=== PATIENT | female | born 1980 | race Caucasian/White ===

== ENCOUNTER 2020-10-05 13:49 | Outpatient (CLI) | payer OTHER, SELFPAY ==
--- NOTE | ~2020-10-05 | MMUS_ITS ---
EXAMINATION: MM diagnostic sharif BI w ashley, US breast LT complete HISTORY: Palpable left breast abnormality TECHNIQUE: Additional 3-D tomosynthesis images of the breasts were performed and synthetic 2-D images were generated. CAD analysis was submitted and interpreted. High resolution complete left breast ult rasound was performed. COMPARISON: 06/16/2016 BREAST PARENCHYMAL COMPOSITION: Breast composed of scattered areas of fibroglandular density. FINDINGS: MAMMOGRAPHIC FINDINGS: There is a 5 mm circumscribed mass in the lower inner quadrant of the left breast anteriorly. There a re no suspicious calcifications or architectural distortion. ULTRASOUND: There are multiple cysts of the left breast, largest measuring 1.5 cm maximum dimension at 4:00, 4 cm from the nipple. There is a 6 mm cyst corresponding to the mammographic abnormality at 8:00, 3 cm fr om the nipple. No suspicious masses to suggest malignancy. IMPRESSION: 1. No evidence for malignancy in either breast. 2. Routine yearly screening mammogram and regular clinical breast examination are recommended. BI-RADS Category 2: Benign finding(s). Reviewed, dictated and finalized at location A. IMPRESSION: 1. No evidence for malignancy in either breast. 2. Routine yearly screening mammogram and regular clinical breast examination a re recommended. BI-RADS Category 2: Benign finding(s).
== END 2020-10-05 13:50 | disposition home or self-care (01) ==
PROVIDERS: PCP Family Medicine; Visit Provider Obstetrics & Gynecology
DX: N63.20 Unspecified lump in the left breast, unspecified quadrant (principal)
CPT/HCPCS: 76641; 77062; 77066; G0279

== ENCOUNTER 2023-05-29 10:43 | Outpatient (CLI) | payer OTHER, SELFPAY ==
--- NOTE | ~2023-05-29 | MMUS_ITS ---
EXAMINATION: MM diagnostic sharif BI w ashley, US breast BI limited HISTORY: Palpable lump in the upper outer quadrant of the right breast TECHNIQUE: Craniocaudal, mediolateral, and mediolateral oblique 3-D tomosynthesis images of the chuy ts were performed and synthetic 2-D images were generated. CAD analysis was submitted and interpreted . High resolution limited bilateral breast ultrasound was performed. COMPARISON: 10/05/2020, 06/16/2016 BREAST PARENCHYMAL COMPOSITION: The breasts are heterogeneously dense, which may obscure small masses . FINDINGS: MAMMOGRAPHIC FINDINGS: Right breast: There is a 1.5 x 1.1 cm oval, obscured, equal density mass in the anterior/middle third of the upper outer quadrant of the breast at the 10:00 location, 5 cm from the nipple corresponding to the palpable abnormality of concern. Left breast: There is a stable 5 mm round, equal density, circumscribed mass in the middle third of i nner breast 8:00 location, 6 cm from the nipple. In addition there is a stable stable 2.1 x 1.1 cm lo w-density, lobulated, obscured mass in the middle third of the lower-outer breast at the 4:00 locatio n, 7 cm from the nipple. ULTRASOUND: Right breast: There is a 1.1 x 0.9 cm oval, circumscribed, not parallel, hypoechoic mass with mixed p osterior features and internal vascularity at the 9:00 location, 1 cm from the nipple corresponding t o the palpable abnormality of concern. Left breast: There is a stable 1.5 cm cluster of microcysts at the 4:00 location 2 cm from the nipple , consistent with a benign finding.. In addition stable 5 mm round, circumscribed, hypoechoic mass wi th no posterior features or internal vascularity at the 8:00 location, 3 cm from the nipple, consiste nt with a benign finding. IMPRESSION: 1. Indeterminate right breast mass corresponding to the palpable abnormality of concern. 2. Ultrasound-guided right breast biopsy is recommended. BI-RADS category 4, suspicious findings. Reviewed, dictated and finalized at location A. OHISTORIAN IMPRESSION: 1. Indeterminate right breast mass corresponding to the palpable abnormality of concern. 2. Ultrasound-guided right breast biopsy is recommended. BI-RADS category 4, suspicious findings.
== END 2023-05-29 10:44 | disposition home or self-care (01) ==
PROVIDERS: PCP Family Medicine; Visit Provider Obstetrics & Gynecology
DX: N63.11 Unspecified lump in the right breast, upper outer quadrant (principal); R92.8 Other abnormal and inconclusive findings on diagnostic imaging of breast
CPT/HCPCS: 76642; 77062; 77066; G0279

== ENCOUNTER 2023-07-23 01:23 | Day surgery (SDC) | payer OTHER, SELFPAY ==
[2023-07-16 09:38] VITALS: BMI 33.6
--- NOTE | 2023-07-16 09:43 | PC.NURSE ---
Report to the Outpatient Waiting Room, entrance under the green pavilion located off [facility], at time 0600 on date 07/23/23. Planned Procedure Time: 0730. Time changes happen often and if your time is changed the preop area will call you the afternoon before. - You and your visitor will be asked to self-screen and do not enter if you have any COVID symptoms. - A mask is optional within the hospital at this time. Patients may have clear liquids (water, carbonated beverages, clear teas, apple juice) until 3 hours prior to surgery with a maximum of 20 ounces. - No food from midnight until time of surgery Take the following medications with a SIP of water the morning of surgery: N/A DO NOT STOP ANY OF YOUR OTHER PRESCRIPTION MEDICATIONS PRIOR TO SURGERY ?EXCEPT THE FOLLOWING Medications to discontinue per physician: N/A Date to take last dose: N/A Please no make-up, nail yoruba, hairspray, perfume, deodorant, or body powder the day of surgery. No jewelry (including any body piercings) or valuables the day of surgery, leave them at home. Please take a shower or bath the night before, or the morning of, surgery with an antibacterial soap. Wear comfortable, loose fitting clothing. - Jewelry must be removed prior to entering the operating room. Rings and piercings that are not removed may be cut off. - The hospital will not accept responsibility for valuables. - Please leave all valuables, including medications, at home the day of surgery. If you are going home after surgery, a licensed transit driver must drive you home. - NO public transportation without another adult if you receive anesthesia. - We recommend that an adult stay with you for 24 hours following discharge. - We also recommend that you do not drive, make important decision, drink alcoholic beverages, or take any drugs that were not prescribed by your health care provider for at least 24 hours after your discharge time. Follow any additional instructions given to you from your surgeon. If you or anyone in your household have experienced Covid symptoms in the past week, please notify your surgeon or the nurse liaison at the phone number below for possible testing. Telephone instructions given to PT Arti BURLESON and asked if any additional questions and then verbalized understanding. Patient advised to call surgeon office or pre surgery nurse liaison [phone] if any additional questions.
--- NOTE | 2023-07-22 08:59 | PM.IMHP ---
H&P: HPI History of Present Illness Date/Time: 07/22/23 08:59 Chief Complaint: AUB Narrative: Mari is a 43yo [id number], who presents for scheduled surgery. She has a normal pap 08/2020. She reports her cycles are regular; more cramping the first few days (take OTC meds PRN), but that they have gotten significantly heavier over the last year. Now having 3 full days of clots and needing to change her super plus tampon every couple of hours. INTELLIGENCE AGENT US and blood work were normal. EMB in office was also normal. Wanting to proceed with the ablation. Has h/o BTL. Has h/o LEEP in 2003; normal paps since. Review of Systems Constitutional: Constitutional: Denies chills, Denies fever(s) and Denies headache(s) Eyes: Eyes: Denies change in vision ENT: Denies dizziness and Denies headache(s) Cardiovascular: Cardiovascular: Denies chest pain and Denies dyspnea Respiratory: Respiratory: Denies cough and Denies dyspnea Gastrointestinal: Gastrointestinal: Denies abdominal pain and Denies change in stool character Genitourinary: Genitourinary: Denies abnormal menses, Reports menorrhagia, Denies pelvic pain, Denies vaginal discharge, Denies vaginal odor and Denies vaginal pruritus Neurologic: Denies dizziness and Denies headache(s) Psychiatric: Psychiatric: Denies anxiety and Denies depression PMFSH Past Medical History Medical History delivery delivered xs 2 High cholesterol Rosacea Surgical History Surgical History H/O colposcopy with cervical biopsy 2003 History of loop electrosurgical excision procedure (LEEP) 2004 Tubal ligation status Family History Family History Other Heart disease Hypertension Hyperthyroidism Pulmonary embolism Social History Social History Smoking status: Never smoker Alcohol intake: current Drinks per week: 4 Alcohol use details: socially Substance use: never Substance use type: does not use Lack of Transportation: No Lack of Food: Never True Current Housing: I Have Housing Concerned About Future Housing: No Difficulty Paying Gas/Electric Bills: No Difficulty Paying for Meds: No Currently Unemployed: No Education: Associate Degree Difficulty w/ Childcare or Family Care: No Living arrangements: with family Occupation/Education: occupation Additional occupation/education comments: nurse Gender identity (if verbalized by the patient): Female Sexual Orientation (if Verbalized by the Patient): Straight or Heterosexual Spiritual care concerns: No Meds Home Medications and Allergies Home Medications Medication Instructions Recorded Confirmed Type No Home Medications 04/12/22 07/16/23 History Allergies Allergy/AdvReac Type Severity Reaction Status Date / Time morphine [From Astramorph-PF] Allergy Intermediate Itching Verified 07/16/23 09:38 Exam Const: General: cooperative, healthy appearing, comfortable and no acute distress Orientation/consciousness: patient oriented x3 Resp: Effort & Inspection: normal respiratory effort Cardio: Rate: regular rate GI: Inspection: normal to inspection GI Palp: No abdominal tenderness and Yes Soft to palpation : Other: deferred to OR Skin: General skin exam: normal color Neuro: General: patient oriented x3 Extrem: General: normal to inspection Psych: Appearance: grossly normal Affect: normal affect Attitude: cooperative Assessment and Plan Assessment and plan (1) Menorrhagia: Qualifiers: Menorrhagia type: with regular cycle Qualified Code(s): N92.0 - Excessive and frequent menstruation with regular cycle Code(s): N92.0 - Excessive and frequent menstruation with regular cycle Status: Acute Plan - proceed with HSC, D&C
--- NOTE | 2023-07-23 06:35 | WPDHPUPDATE1 ---
History and Physical Update Update Date/Time: 07/23/23 06:35 History and Physical has been reviewed, including an updated exam of the patient. There are NO changes in the patient's condition. Risks, benefits, and alternatives have been discussed and questions answered. Patient agrees to proceed with Hysteroscopy, D&C, and Lynne endometrial ablation.
[2023-07-23 06:45] VITALS: BP 117/83; PULSE 78; RESP 14; TEMP 36.8; O2SAT 99
[2023-07-23] MEDS: ACETAMINOPHEN 500 MG TABLET 1000 MG PO (06:45)
[2023-07-23] MEDS: LACTATED RINGERS 1,000 ML 30 ML IV CONT (06:45)
--- NOTE | 2023-07-23 07:13 | P.PNAN_ITS ---
Anes - Initial Pre Proc Eval Procedure: Operation Date: 07/23/23 07:30 Proposed Procedures p Hysteroscopy Dilation and Curettage with Lynne Endometrial Ablation - Pat Obando MD Date/Time: 07/23/23 07:13 Surgeon: Pat Obando MD Pre Op Diagnosis: Menorrhagia Patient Data Age: 43 Gender: F Height: 1.63 m Weight: 90.05 kg Last Vital Signs Temp 98.2 F 07/23/23 06:45 Pulse 78 07/23/23 06:45 Resp 14 07/23/23 06:45 BP 117/83 07/23/23 06:45 Pulse Ox 99 07/23/23 06:45 O2 Del Method Room Air 07/23/23 06:45 Allergies Allergy/AdvReac Type Severity Reaction Status Date / Time morphine [From Astramorph-PF] Allergy Intermediate Itching Verified 07/23/23 06:56 Home Medications Medication Instructions Recorded Confirmed Type No Home Medications 04/12/22 07/16/23 History Patient hx anesthesia problems: none Family hx anesthesia problems: none Results Review: All pre-operative results and documents have been reviewed as part of the pre- operative evaluation. [facility] Past Medical History Medical History delivery delivered xs 2 High cholesterol Rosacea Surgical History Surgical History H/O colposcopy with cervical biopsy 2003 History of loop electrosurgical excision procedure (LEEP) 2004 Tubal ligation status Family History Family History Other Heart disease Hypertension Hyperthyroidism Pulmonary embolism Social History Social History Smoking status: Never smoker Alcohol intake: current Drinks per week: 4 Alcohol use details: socially Substance use: never Substance use type: does not use Lack of Transportation: No Lack of Food: Never True Current Housing: I Have Housing Concerned About Future Housing: No Difficulty Paying Gas/Electric Bills: No Difficulty Paying for Meds: No Currently Unemployed: No Education: Associate Degree Difficulty w/ Childcare or Family Care: No Living arrangements: with family Occupation/Education: occupation Additional occupation/education comments: nurse Gender identity (if verbalized by the patient): Female Sexual Orientation (if Verbalized by the Patient): Straight or Heterosexual Spiritual care concerns: No Anes - Eval Final PreProcedure Day of Procedure 07/23/23 07:13 Patient weight: obese Heart: regular rate and rhythm Lungs: clear to auscultation Airway: Mallampati scale class II Neurological: alert and oriented Last oral intake: >/= 8 hours ASA classification: III Emergent: no Anesthetic plan: proceed Anesthesia type and monitoring: general GIVS and standard monitoring Results Review: All pre-operative results and documents have been reviewed as part of the pre- operative evaluation. Informed Consent: The patient's anesthetic plan and its attendant risks and benefits were discussed with the patient/family/POA. Questions were solicited and answers provided to the satisfaction of the patient/family/POA.
--- NOTE | 2023-07-23 07:53 | W.PM.PROC2 ---
Procedure Note - Detailed Date of Procedure 07/23/23 Pre-op Diagnosis Menorrhagia Post-op Diagnosis Same Procedure Performed Hysteroscopy, D&C, Lynne endometrial ablation Surgeon Pat Obando MD Anesthesia MAC Findings Uterus sounded to 8cm; cervix 4.5cm. Normal cavity without lesions/masses. Bilateral tubal ostia visualized. Lynne ablation occurred w/o issue. Good hemostasis at end of case. Fluid deficit: 120cc. Description of Procedure Mari was taken to the operating room where she was placed under sedation without complications. She was then prepped and draped in the usual sterile fashion in the dorsal lithotomy position with her legs in low Emanuel stirrups. A time-out was performed and no perioperative antibiotics were indicated. A bivalve speculum was placed within the vagina where the cervix was easily identified. The anterior lip of the cervix was grasped with a single-tooth tenaculum. The cervix was then serially dilated to allow for the hysteroscope. The uterus was sounded. The hysteroscope was advanced into the uterine cavity with the above findings noted. A curettage was then performed until a good uterine cry was felt throughout the uterus. The Lynne endometrial ablation device was then placed within the endometrial cavity; set to 4.5cm. The procedure was performed per assistant sales manager's instructions in the correct manner without complications. Good hemostasis was noted. All instruments were removed from the vagina. Sponge, lap, instrument, and needle counts were correct at the end of the procedure. Patient was awoken from anesthesia and taken to recovery with plans of same-day discharge home. Estimated Blood Loss 5 IV Fluids 800 Pathology Yes (endometrial curetting's ) Complications No immediate complications Condition Stable Disposition Same day [facility] Billing Surgery - Charge Forward: Surgery Billing
[2023-07-23 07:54] VITALS: BP 111/73; PULSE 69; RESP 14; O2SAT 95
[2023-07-23 08:20] VITALS: BP 111/75; PULSE 64; RESP 20
[2023-07-23] MEDS: oxyCODONE HCL (*CRX) 5 MG TAB IR PO (08:38)
[2023-07-23 08:50] VITALS: BP 133/83; PULSE 58; RESP 20
[2023-07-23 09:05] VITALS: BP 141/87; PULSE 57; RESP 20
== END 2023-07-23 09:10 | disposition home or self-care (01) ==
PROVIDERS: PCP Emergency Medicine; Visit Provider Obstetrics & Gynecology
PROC: 0U5B8ZZ Destruction of Endometrium, Via Natural or Artificial Opening Endoscopic (ICD-10-PCS; CPT 58563; principal; 2023-07-23 07:30)
DX: N92.0 Excessive and frequent menstruation with regular cycle (principal); E78.00 Pure hypercholesterolemia, unspecified; E66.9 Obesity, unspecified; Z68.34 Body mass index [BMI] 34.0-34.9, adult; Z98.890 Other specified postprocedural states; Z82.49 Family history of ischemic heart disease and other diseases of the circulatory system
CPT/HCPCS: 58563; 88305; A9270; J1100; J1885; J2250; J2405; J2704; J7120